=== PATIENT | female | born 1980 | race African-American/Black ===

== ENCOUNTER 2019-02-25 10:34 | Emergency (ER) | payer SELFPAY ==
[~2019-02-25] VITALS: Ht 160 cm; Wt 90.7 kg
[2019-02-25 10:56] VITALS: BP 136/91
[2019-02-25] MEDS ORDERED: traMADol 50 MG TABLET PO ONE (11:45)
[2019-02-25 11:47] LABS: BILIRUBIN,URINE NEGATIVE (NEG); CLARITY,URINE CLEAR; COLOR,URINE YELLOW; NITRITE,URINE NEGATIVE (NEG); PH,URINE 5.5; PROTEIN,URINE NEGATIVE (NEG-TRACE); UROBILINOGEN,URINE 0.2 mg/dL (0.2 mg/dL)
--- NOTE | 2019-02-25 11:51 | PHYS DOC ---
Past Medical History Past Medical History: No Pertinent History Past Surgical History: Tubal ligation Alcohol Use: None Drug Use: None Adult General Chief Complaint Chief Complaint: LOWEREXTREMITY INJURY HPI HPI Patient is a 38 year old female who presents with states at 2 AM this morning she found him quite a few stairs that were carpeted. She cannot tell me exactly angle-stairs. She complains of left lower back pain without radiation of pain. She denies hitting her head or LOC, nausea, vomiting, abdominal pain, rib pain, shortness of breath, chest pain, visual changes, numbness or tingling, weaknesses, blood in her urine. Amylase with a steady gait. Patient has left tib-fib tenderness with palpation and ankle swelling. Patient rates her pain an 8 out of 10. Review of Systems Review of Systems Musculoskeletal:Left low back pain. Left ankle and foot joint pain [] All other systems were reviewed and found to be within normal limits, except as documented in this note. Current Medications Current Medications Current Medications Medications (Trade) Dose Ordered Sig/Karen Start Time Stop Time Status Last Admin Dose Admin Tramadol HCl (Ultram) 50 mg 1X ONCE 02/25/19 11:45 02/25/19 11:46 DC 02/25/19 11:41 50 MG Allergies Allergies Allergies Coded Allergies Type Severity Reaction Last Updated Verified morphine Allergy Unknown 02/25/19 Yes Physical Exam Physical Exam Constitutional: Well developed, well nourished, no acute distress, non-toxic appearance. [] HENT: Normocephalic, atraumatic, bilateral external ears normal, oropharynx moist, no oral exudates, nose normal. [] Eyes: PERRLA, EOMI, conjunctiva normal, no discharge. [] Neck: Normal range of motion, no tenderness, supple, no stridor. [] Cardiovascular:Heart rate regular rhythm, no murmur [] Lungs & Thorax: Bilateral breath sounds clear to auscultation [] Abdomen: Bowel sounds normal, soft, no tenderness, no masses, no pulsatile masses. [] Skin: Warm, dry, no erythema, no rash. [] Back: Cervical and thoracic tenderness, no CVA tenderness. [] Extremities: Left medial ankle, Left tib fib, Left dorsal foot tenderness, no cyanosis, no clubbing, Left ankle ROM not intact, 2+ edema. [] Neurologic: Alert and oriented X 3, normal motor function, normal sensory function, no focal deficits noted. [] Psychologic: Affect normal, judgement normal, mood normal. [] Current Patient Data Vital Signs Vital Signs Date Time Temp Pulse Resp B/P (MAP) Pulse Ox O2 Delivery O2 Flow Rate FiO2 02/25/19 11:41 18 02/25/19 10:56 98.6 114 136/91 (106) 98 Room Air 98.6 Lab Values Laboratory Tests Test 02/25/19 11:17 02/25/19 11:31 Urine Collection Type Unknown Urine Color Yellow Urine Clarity Clear Urine pH 5.5 Urine Specific [place] 1.020 Urine Protein Negative mg/dL (NEG-TRACE) Urine Glucose (UA) Negative mg/dL (NEG) Urine Ketones (Stick) Negative mg/dL (NEG) Urine Blood Negative (NEG) Urine Nitrite Negative (NEG) Urine Bilirubin Negative (NEG) Urine Urobilinogen Dipstick 0.2 mg/dL (0.2 mg/dL) Urine Leukocyte Esterase Negative (NEG) Urine RBC 0 /HPF (0-2) Urine WBC 0 /HPF (0-4) Urine Squamous Epithelial Cells Occ /LPF Urine Bacteria 0 /HPF (0-FEW) Urine Mucus Mod /LPF POC Urine HCG, Qualitative Hcg negative (Negative) EKG EKG [] Radiology/Procedures Radiology/Procedures [] Impressions: [facility] [address] [place] [address] IMAGING REPORT Signed PATIENT: BRITTANI WISDOM ACCOUNT: [id number] : 1980 LOCATION: ER AGE: 38 SEX: F EXAM STATUS: REG ER ORD. PHYSICIAN: CLOVIS ESCALANTE APRN REASON: fall PROCEDURE: CT HEAD AND CERVICAL SPINE WO STUDY: CT head and cervical spine without contrast INDICATION: Fall. COMPARISON: None. TECHNIQUE: Axial CT imaging through the head and cervical spine without the use of intravenous contrast. Sagittal and coronal reformats were obtained. One or more of the following individualized dose reduction techniques were utilized for this examination: 1. Automated exposure control 2. Adjustment of the mA and/or kV according to patient size 3. Use of iterative reconstruction technique. FINDINGS: CT head: No acute intracranial hemorrhage. No mass effect, midline shift or hydrocephalus. Lantigua-white matter differentiation is maintained. Intact calvarium. CT cervical spine: No acute fracture or traumatic malalignment. Mild study degradation on account of patient obliquity within the scanner. No advanced general changes. No significant bony encroachment on the central canal. Unremarkable paraspinous soft tissues, thyroid and lung apices. IMPRESSION: CT head: 1. No acute intracranial abnormality. CT cervical spine: 1. No acute fracture. Electronically signed by: ELVIA MEJIA MD (02/25/2019 12:39 PM) [facility] DICTATED and SIGNED BY: ELVIA MEJIA MD DATE: 02/25/19 1239 [facility] [address] [place], [place] [id number] IMAGING REPORT Signed PATIENT: BRITTANI WISDOM ACCOUNT: [id number] : 1980 LOCATION: ER AGE: 38 SEX: F EXAM STATUS: REG ER ORD. PHYSICIAN: CLOVIS ESCALANTE APRN REASON: fall, pain DOWN LEFT LEG,FOOT AND ANKLE PROCEDURE: ANKLE LEFT 3V Study: 1. CR ANKLE LEFT 3V 2. CR FOOT LEFT 3V 3. CR TIBIA FIBULA LEFT Indication: Pain down the left leg after a fall. Comparison: None. Findings: No acute fracture seen throughout the left foot. No traumatic malalignment. Anatomic alignment at the ankle. No acute fracture. The talar dome is intact. Small plantar calcaneal spur. Crescentic focus of mineralization along the medial femoral condyle. Knee alignment is maintained. No acute fracture of the tibia or fibula. Impression: No acute fracture of the tibia/fibula, at the ankle or throughout the left foot. A crescentic focus of mineralization is seen adjacent to the medial femoral condyle in keeping with a Julio C-Stieda lesion of uncertain acuity. Recommend correlation for pinpoint tenderness. Electronically signed by: ELVIA MEJIA MD (02/25/2019 1:00 PM) [facility] DICTATED and SIGNED BY: ELVIA MEJIA MD DATE: 02/25/19 1300 [facility] [address] [place] [address] IMAGING REPORT Signed PATIENT: BRITTANI WISDOM ACCOUNT: [id number] : 1980 LOCATION: ER AGE: 38 SEX: F EXAM STATUS: REG ER ORD. PHYSICIAN: CLOVIS ESCALANTE APRN REASON: fall PAIN DOWN ENTIRE SPINE PROCEDURE: LUMBAR SPINE MIN 4V Study: 1. CR THORACIC SPINE 3V 2. CR LUMBAR SPINE MIN 4V Indication: Fall. Pain down the entirety of the spine. Comparison: None. Findings: Thoracic vertebral body height and alignment is obtained to noting incomplete evaluation of the upper thoracic spine due to overlapping structures. The posterior elements throughout the thoracic spine are mostly obscured though no gross abnormality is seen. Unremarkable cardiomediastinal silhouette. 6 nonrib-bearing lumbar-type vertebral elements noted. Maintained vertebral body height and alignment. No discrete fracture of the posterior elements. Impression: No acute fracture seen throughout the thoracic or lumbar spine noting that much of the thoracic posterior elements are not well evaluated due to overlapping structures. Alignment of the vertebral bodies is anatomic. Electronically signed by: ELVIA MEJIA MD (02/25/2019 12:55 PM) [facility] DICTATED and SIGNED BY: ELVIA MEJIA MD DATE: 02/25/19 1503 Course & Med Decision Making Course & Med Decision Making She can wiggle all of her toes. Denies any numbness tingling. Cap refill less than 3 seconds. Pedal pulses strong and present. There is no laxity in the ankle joint but is painful for her to rotate. Therefore range of motion in the ankle joint is not intact. No deformity, bruising, redness or abrasions seen. There is tenderness to the tibia side of the left leg with palpation. There is medial ankle tenderness with palpation. Medial ankle 2+ swelling. There is also tenderness to the dorsal foot. There is cervical spine tenderness and mid thoracic spine tenderness. Back or flank bruising. Full ROM in the cervical, thoracic and lumbar spine. Lungs clear to auscultation in all lobes. Dragon Disclaimer Dragon Disclaimer This electronic medical record was generated, in whole or in part, using a voice recognition dictation system. Departure Departure Impression: Primary Impression: Contusion Additional Impressions: Fall Foot pain, left Ankle pain, left Back pain Disposition: 01 HOME, SELF-CARE Condition: STABLE Referrals: NO PCP (PCP) Patient Instructions: Contusion, Muscle Strain, [id number] Additional Instructions: Follow-up with primary care provider. Use heat and ice. Take ibuprofen and other medications to help with her pain. Scripts Orphenadrine Citrate (ORPHENADRINE CITRATE) 100 Mg Tablet.er 1 TAB PO BID, #14 TAB 1 Refill Prov: CLOVIS ESCALANTE APRN 02/25/19 Tramadol Hcl (TRAMADOL HCL) 50 Mg Tablet 50 MG PO Q6HRS PRN for PAIN, #10 TAB Prov: CLOVIS ESCALANTE APRN 02/25/19 Problem Qualifiers Primary Impression: Contusion Encounter type: initial encounter Contusion area: lower leg Laterality: left Qualified Codes: S80.12XA - Contusion of left lower leg, initial encounter Additional Impressions: Fall Encounter type: initial encounter Qualified Codes: W19.XXXA - Unspecified fall, initial encounter Ankle pain, left Chronicity: acute Qualified Codes: M25.572 - Pain in left ankle and joints of left foot Back pain Back pain location: back pain in unspecified location Chronicity: acute Back pain laterality: midline Qualified Codes: M54.9 - Dorsalgia, unspecified CLOVIS ESCALANTE [employer] Feb 25, 2019 11:51
[2019-02-25 11:54] LABS: SQUAMOUS EPITHELIAL CELL,UR OCC /LPF
[2019-02-25 11:55] LABS: BACTERIA,URINE 0 /HPF (0-FEW); RBC,URINE 0 /HPF (0-2); WBC,URINE 0 /HPF (0-4)
--- NOTE | 2019-02-25 12:42 | RAD ---
STUDY: CT head and cervical spine without contrast INDICATION: Fall. COMPARISON: None. TECHNIQUE: Axial CT imaging through the head and cervical spine without the use of intravenous contrast. Sagittal and coronal reformats were obtained. One or more of the following individualized dose reduction techniques were utilized for this examination: 1. Automated exposure control 2. Adjustment of the mA and/or kV according to patient size 3. Use of iterative reconstruction technique. FINDINGS: CT head: No acute intracranial hemorrhage. No mass effect, midline shift or hydrocephalus. Lantigua-white matter differentiation is maintained. Intact calvarium. CT cervical spine: No acute fracture or traumatic malalignment. Mild study degradation on account of patient obliquity within the scanner. No advanced general changes. No significant bony encroachment on the central canal. Unremarkable paraspinous soft tissues, thyroid and lung apices. IMPRESSION: CT head: 1. No acute intracranial abnormality. CT cervical spine: 1. No acute fracture. Electronically signed by: ELVIA MEJIA MD (02/25/2019 12:39 PM) [facility]
--- NOTE | 2019-02-25 12:57 | RAD ---
Study: 1. CR THORACIC SPINE 3V 2. CR LUMBAR SPINE MIN 4V Indication: Fall. Pain down the entirety of the spine. Comparison: None. Findings: Thoracic vertebral body height and alignment is obtained to noting incomplete evaluation of the upper thoracic spine due to overlapping structures. The posterior elements throughout the thoracic spine are mostly obscured though no gross abnormality is seen. Unremarkable cardiomediastinal silhouette. 6 nonrib-bearing lumbar-type vertebral elements noted. Maintained vertebral body height and alignment. No discrete fracture of the posterior elements. Impression: No acute fracture seen throughout the thoracic or lumbar spine noting that much of the thoracic posterior elements are not well evaluated due to overlapping structures. Alignment of the vertebral bodies is anatomic. Electronically signed by: ELVIA MEJIA MD (02/25/2019 12:55 PM) [facility]
--- NOTE | 2019-02-25 13:02 | RAD ---
Study: 1. CR ANKLE LEFT 3V 2. CR FOOT LEFT 3V 3. CR TIBIA FIBULA LEFT Indication: Pain down the left leg after a fall. Comparison: None. Findings: No acute fracture seen throughout the left foot. No traumatic malalignment. Anatomic alignment at the ankle. No acute fracture. The talar dome is intact. Small plantar calcaneal spur. Crescentic focus of mineralization along the medial femoral condyle. Knee alignment is maintained. No acute fracture of the tibia or fibula. Impression: No acute fracture of the tibia/fibula, at the ankle or throughout the left foot. A crescentic focus of mineralization is seen adjacent to the medial femoral condyle in keeping with a Julio C-Stieda lesion of uncertain acuity. Recommend correlation for pinpoint tenderness. Electronically signed by: ELVIA MEJIA MD (02/25/2019 1:00 PM) [facility] [place]
[2019-02-25] MEDS ORDERED: ORPH100T PO (13:19)
[2019-02-25] MEDS ORDERED: TRAM50TA PO (13:19)
== END 2019-02-25 13:39 | disposition home or self-care (01) ==
LOC: ER 10:34
DX: S90.02XA Contusion of left ankle, initial encounter (principal); S90.32XA Contusion of left foot, initial encounter; M25.572 Pain in left ankle and joints of left foot; M54.5 Low back pain; M54.2 Cervicalgia; Z98.51 Tubal ligation status; Z88.6 Allergy status to analgesic agent; W10.9XXA Fall (on) (from) unspecified stairs and steps, initial encounter; Y93.89 Activity, other specified; Y92.89 Other specified places as the place of occurrence of the external cause; Y99.8 Other external cause status
CPT/HCPCS: 70450; 72072; 72110; 72125; 73590; 73610; 73630; 81001; 81025; 99283; 99285